=== PATIENT | male | born 1960 | race Caucasian/White ===

== ENCOUNTER 2022-06-28 16:20 | Observation (INO) ==
[2022-06-28 19:37] LABS: Hematocrit 49 % (42-52); Hemoglobin 16.5 g/dL (14.0-18.0); Mean Corpuscular HGB Conc 33 g/dL (31-36); Mean Corpuscular Hemoglobin 31 pg (27-31); Mean Corpuscular Volume 92 fL (80-94); Mean Platelet Volume 7.7 fL (7.4-10.4); Platelet Count 255 10^3/uL (150-450); Red Blood Count 5.37 10^6 /uL (4.18-5.48); Red Cell Distribution Width 13 % (10-15); White Blood Count 24.9 10^3/uL (3.5-10.8)
[2022-06-28] MEDS ORDERED: Lactated Ringers 1000 ml BAG 1,000 ML IV ONE ×2 (19:53→23:43)
[2022-06-28 20:11] LABS: ABS Basophils 0.1 10^3/ul (0-0.2); ABS Lymphocytes 1.2 10^3/ul (1.0-4.8); ABS Monocytes 1.7 10^3/ul (0-0.8); ABS Neutrophils 21.8 10^3/ul (1.5-7.7); Eosinophil % 0.2 %; Lymphocyte % 4.9 %
[2022-06-28 20:20] LABS: Albumin 4.7 g/dL (3.2-5.2); Globulin 2.4 g/dL (2-4); Potassium 4.7 mmol/L (3.5-5.0); Total Bilirubin 0.9 mg/dL (0.2-1.0); Total Protein 7.1 g/dL (6.4-8.9); eGFR CKD-EPI 74.7 (>60)
[2022-06-28 20:53] LABS: C Reactive Protein 89.02 mg/L (<8.01)
[2022-06-28 21:38] LABS: Urine Appearance Turbid; Urine Bilirubin Negative (Negative); Urine Blood 2+ (Negative); Urine Color Yellow; Urine Glucose Negative (Negative); Urine Ketones Negative (Negative); Urine Nitrite Negative (Negative); Urine Protein 1+(30 mg/dL) (Negative); Urine Specific Gravity 1.018 (1.002-1.030); Urine Urobilinogen Negative (Negative)
[2022-06-28 21:50] LABS: Urine Bacteria Absent (Absent); Urine Red Blood Cell 2+(6-10/hpf) (Absent); Urine Squamous Epithelial Cell Present (Absent); Urine White Blood Cell 3+(>20/hpf) (Absent)
[2022-06-28] MEDS ORDERED: cefTRIAXone 1 gm/50 mL D5W 1 GM/50 ML BAG IV ONE (22:29)
[2022-06-29] MEDS ORDERED: HYDROcodone/ACETAMIN 5/325 mg TAB PO ONE (00:29)
[2022-06-29 02:31] LABS: PSA Screening Total 83.044 ng/mL (0-4.000)
[2022-06-29] MEDS ORDERED: Lactated Ringers 1000 ml BAG 1,000 ML IV SCH (03:00)
[2022-06-29] MEDS ORDERED: Lorazepam PYXIS KEY PRN (03:12)
[2022-06-29] MEDS ORDERED: LORazepam 2 mg VIAL 1 ml IV PUSH PRN (03:12)
[2022-06-29 03:48] LABS: TSH Ultra Thyroid Stim Horm 1.6 mcIU/mL (0.34-5.60)
[2022-06-29] MEDS: Enoxaparin 40 MG/0.4 ML SYR SUBCUT SCH (06:03)
[2022-06-29] MEDS ORDERED: Lactated Ringers 1000 ml BAG 1,000 ML IV ONE ×2 (17:19→22:48)
[2022-06-29] MEDS ORDERED: Iohexol 350 (CONTRAST) 500 ML MDV IV ONE (18:13)
[2022-06-29] MEDS ORDERED: cefTRIAXone 1 gm/50 mL D5W 1 GM/50 ML BAG IV SCH (22:00)
[2022-06-30] MEDS: Lactated Ringers 1000 ml BAG 1,000 ML IV SCH ×2 (00:32→08:08)
[2022-06-30] MEDS: Enoxaparin 40 MG/0.4 ML SYR SUBCUT SCH (06:35)
[2022-06-30 06:38] LABS: ABS Basophils 0.1 10^3/ul (0-0.2); ABS Lymphocytes 1.5 10^3/ul (1.0-4.8); ABS Monocytes 1.3 10^3/ul (0-0.8); ABS Neutrophils 18.9 10^3/ul (1.5-7.7); Eosinophil % 0.2 %; Hematocrit 41 % (42-52); Hemoglobin 13.7 g/dL (14.0-18.0); Lymphocyte % 6.7 %; Mean Corpuscular HGB Conc 34 g/dL (31-36); Mean Corpuscular Hemoglobin 31 pg (27-31); Mean Corpuscular Volume 92 fL (80-94); Mean Platelet Volume 8.4 fL (7.4-10.4); Platelet Count 208 10^3/uL (150-450); Red Blood Count 4.43 10^6 /uL (4.18-5.48); Red Cell Distribution Width 13 % (10-15); White Blood Count 21.8 10^3/uL (3.5-10.8)
[2022-06-30 06:58] LABS: Calcium 8.7 mg/dL (8.6-10.3); Magnesium 1.7 mg/dL (1.9-2.7); Potassium 3.9 mmol/L (3.5-5.0)
[2022-06-30] MEDS ORDERED: Magnesium Sulfate IV 3 GM in NS 0.9% 100 ml BAG 100 ML IVPB ONE (09:45)
[2022-06-30 12:37] VITALS: BP 138/71
== END 2022-06-30 17:00 | disposition home or self-care (01) ==
LOC: ED 16:20 → INTOOBSV 06-29 02:03 → SUATTDRO 06-29 02:03 → EDHOLD 06-29 02:03 → MEDTELE 06-29 16:26
PROVIDERS: ADMIT Internal Medicine; ATTEND Student in an Organized Health Care Education/Training Program